=== PATIENT | female | born 1990 | race American Indian/Alaskan Native ===

== ENCOUNTER 2018-10-18 00:01 | Emergency (ER) | payer SELFPAY ==
[2018-10-18 00:14] VITALS: BP 129/70
--- NOTE | 2018-10-18 03:39 | XRay Report ---
FINAL REPORT PROCEDURE: XR CHEST ROUTINE 2V TECHNIQUE: PA and lateral chest radiographs were obtained. CPT 47024 HISTORY: cough and pain COMPARISON: No prior studies are available for comparison. FINDINGS: Heart: Normal. Mediastinum/Vessels: Normal. Lungs/Pleural space: Normal. Bony thorax: No acute osseous abnormality. Other: IMPRESSION: Normal examination.
--- NOTE | 2018-10-18 04:13 | Emergency Department Report ---
- General Chief Complaint: Pain General Stated Complaint: GENERAL WEAKNESS Time Seen by Provider: 10/18/18 03:16 Source: patient Mode of arrival: Ambulatory Limitations: No Limitations - History of Present Illness MD Complaint: fever, cough, other (coryza) -: Sudden, days(s) ( 2) Quality: dull Improves With: nothing Worsens With: nothing Context: sick contacts Associated Symptoms: chills, myalgias, rhinorrhea, cough. denies: diaphoresis, headache, chest pain, shortness of breath, nausea, vomiting, confusion, right sweats, weight loss, epistaxis - Related Data Previous Rx's Medication Instructions Recorded Last Taken Type RX: traMADol [Ultram 50 MG tab] 50 mg PO Q6HR PRN #14 tablet 12/03/13 Unknown Rx Acetaminophen/Codeine [Tylenol #3] 1 tab PO Q6H PRN #20 tab 09/30/15 Unknown Rx RX: Ibuprofen [Motrin 800 MG tab] 800 mg PO Q8HR PRN #30 tablet 09/30/15 Unknown Rx Sulfamethoxazole/Trimethoprim 1 each PO BID #20 tablet 09/30/15 Unknown Rx [Bactrim DS TAB] Ketorolac [Toradol] 10 mg PO Q6H PRN #10 tablet 10/18/18 Unknown Rx guaiFENesin/CODEINE [Robitussin AC] 5 ml PO Q6HR #120 oral.liqd 10/18/18 Unknown Rx Allergies Allergy/AdvReac Type Severity Reaction Status Date / Time No Known Allergies Allergy Unverified 12/03/13 08:44 ED Review of Systems ROS: Stated complaint: GENERAL WEAKNESS Other details as noted in HPI Constitutional: denies: chills, fever Eyes: denies: eye pain, eye discharge, vision change ENT: denies: ear pain, throat pain Respiratory: denies: cough, shortness of breath, wheezing Cardiovascular: denies: chest pain, palpitations Endocrine: no symptoms reported Gastrointestinal: denies: abdominal pain, nausea, diarrhea Genitourinary: denies: urgency, dysuria, discharge Musculoskeletal: denies: back pain, joint swelling, arthralgia Skin: denies: rash, lesions Neurological: denies: headache, weakness, paresthesias Psychiatric: denies: anxiety, depression Hematological/Lymphatic: denies: easy bleeding, easy bruising ED Past Medical Hx - Past Medical History Previous Medical History?: No - Surgical History Past Surgical History?: No - Social History Smoking Status: Never Smoker Substance Use Type: None - Medications Home Medications: Home Medications Medication Instructions Recorded Confirmed Last Taken Type RX: traMADol [Ultram 50 MG tab] 50 mg PO Q6HR PRN #14 tablet 12/03/13 Unknown Rx Acetaminophen/Codeine [Tylenol #3] 1 tab PO Q6H PRN #20 tab 09/30/15 Unknown Rx RX: Ibuprofen [Motrin 800 MG tab] 800 mg PO Q8HR PRN #30 tablet 09/30/15 Unknown Rx Sulfamethoxazole/Trimethoprim 1 each PO BID #20 tablet 09/30/15 Unknown Rx [Bactrim DS TAB] Ketorolac [Toradol] 10 mg PO Q6H PRN #10 tablet 10/18/18 Unknown Rx guaiFENesin/CODEINE [Robitussin AC] 5 ml PO Q6HR #120 oral.liqd 10/18/18 Unknown Rx ED Physical Exam - General Limitations: No Limitations ED Course Vital Signs 10/18/18 00:13 Temperature 99.2 F Pulse Rate 90 Respiratory 18 Rate Blood Pressure 129/70 O2 Sat by Pulse 98 Oximetry Critical care attestation.: If time is entered above; I have spent that time in minutes in the direct care of this critically ill patient, excluding procedure time. ED Disposition Clinical Impression: Viral syndrome Disposition: [id number] TO HOME OR SELFCARE Is pt being admited?: No Does the pt Need Aspirin: No Condition: Stable Instructions: Viral Syndrome (ED) Prescriptions: guaiFENesin/CODEINE [Robitussin AC] 5 ml PO Q6HR #120 oral.liqd Ketorolac [Toradol] 10 mg PO Q6H PRN #10 tablet PRN Reason: Pain Referrals: LETICIA VILLALPANDO MD [Primary Care Provider] - 3-5 Days Forms: Work/School Release Form(ED)
[2018-10-18] MEDS ORDERED: IBUPROFEN PO ONE ×3 (04:23→04:32)
== END 2018-10-18 04:36 | disposition home or self-care (01) ==
LOC: ED 00:01
DX: B34.9 Viral infection, unspecified (principal); M79.10 Myalgia, unspecified site
CPT/HCPCS: 71046; 99283